=== PATIENT | female | born 1985 | race Hispanic/Latino ===

== ENCOUNTER 2017-02-20 04:01 | Emergency (ER) | payer SELFPAY ==
[2017-02-20 04:15] VITALS: BP 127/91
== END 2017-02-20 04:12 | disposition left against medical advice (07) ==
LOC: ED 04:01
DX: H57.12 Ocular pain, left eye (principal); Z53.21 Procedure and treatment not carried out due to patient leaving prior to being seen by health care provider

== ENCOUNTER 2020-12-23 21:52 | Emergency (ER) | payer SELFPAY | END 2020-12-23 21:55 | disposition left against medical advice (07) | LOC: ED 21:52 | DX: S99.929A Unspecified injury of unspecified foot, initial encounter (principal); Z53.21 Procedure and treatment not carried out due to patient leaving prior to being seen by health care provider; X58.XXXA Exposure to other specified factors, initial encounter; Y93.89 Activity, other specified; Y92.89 Other specified places as the place of occurrence of the external cause; Y99.8 Other external cause status ==